=== PATIENT | male | born 1995 | race Caucasian/White ===

== ENCOUNTER 2017-08-25 06:55 | Emergency (ER) | payer MEDICAID, OTHER ==
[2017-08-25] MEDS: DEXAMETHASONE 10 MG/ML 1 ML INJ IM (07:40)
[2017-08-25] MEDS: ALBUTEROL 0.083% (NEB) 2.5 MG/3 ML AMP NEB (07:54)
== END 2017-08-25 09:40 | disposition home or self-care (01) ==
LOC: FTE 06:55
DX: J40 Bronchitis, not specified as acute or chronic (principal)
CPT/HCPCS: 71045; 94664; 96372; 99284-25

== ENCOUNTER 2017-12-11 03:13 | Emergency (ER) | payer OTHER, MEDICAID ==
[2017-12-11] MEDS: IPRATROPIUM (NEB) 0.5 MG/2.5 ML AMP HHN (03:49)
[2017-12-11] MEDS: DEXAMETHASONE 10 MG/ML 1 ML INJ IM (03:49)
[2017-12-11] MEDS: ALBUTEROL 0.083% (NEB) 2.5 MG/3 ML AMP HHN (03:50)
[2017-12-11 03:57] LABS: ADD MAN DIFF? NO
[2017-12-11 04:13] LABS: BASOPHIL # 0.1 10^3/ul (0.0-0.1); BASOPHILS % 0.9 % (0.0-2.0); EOSINOPHILS # 0.5 10^3/ul (0.0-0.5); EOSINOPHILS % 5.3 % (0.0-7.0); HEMATOCRIT 43.5 % (42.0-52.0); HEMOGLOBIN 15.2 g/dl (14.0-18.0); LYMPHOCYTES # 2.8 10^3/ul (0.8-2.9); MEAN CORPUSCULAR HEMOGLOBIN 29.5 pg (29.0-33.0); MEAN CORPUSCULAR HGB CONC 34.9 g/dl (32.0-37.0); MEAN CORPUSCULAR VOLUME 84.5 fl (82.0-101.0); MEAN PLATELET VOLUME 10.1 fl (7.4-10.4); NEUTROPHIL # 4.1 10^3/ul (1.6-7.5); NEUTROPHILS % 48.6 % (39.0-77.0); PLATELET COUNT 278 10^3/UL (140-415); RED BLOOD COUNT 5.15 10^6/ul (4.70-6.10); RED CELL DISTRIBUTION WIDTH 13.3 % (11.5-14.5)
[2017-12-11 04:13] LABS: WHITE BLOOD COUNT 8.5 10^3/ul (4.8-10.8)
[2017-12-11 04:19] LABS: ALANINE AMINOTRANSFERASE 36 IU/L (13-69); ALBUMIN 4.7 g/dl (3.3-4.9); ALBUMIN/GLOBULIN RATIO 1.23; ALKALINE PHOSPHATASE 177 IU/L (42-121); ANION GAP 18 (8-16); ASPARTATE AMINO TRANSFERASE 36 IU/L (15-46); BILIRUBIN,INDIRECT 0.2 mg/dl (0-1.1); BILIRUBIN,TOTAL 0.2 mg/dl (0.2-1.3); BLOOD UREA NITROGEN 17 mg/dl (7-20); CALCIUM 9.6 mg/dl (8.4-10.2); CARBON DIOXIDE 17 mmol/L (21-31); CHLORIDE 111 mmol/L (97-110); CREATININE 0.88 mg/dl (0.61-1.24); GLUCOSE 120 mg/dl (70-220); LIPASE 64 U/L (23-300); POTASSIUM 3.7 mmol/L (3.5-5.1); SODIUM 142 mmol/L (135-144); TOTAL PROTEIN 8.5 g/dl (6.1-8.1)
[2017-12-11] MEDS: LEVALBUTEROL (NEB) 1.25 MG/0.5 ML AMP HHN (04:21)
[2017-12-11 04:30] LABS: TROPONIN-I < 0.012 ng/ml (0.000-0.120)
[2017-12-11 05:13] LABS: ADD UMIC YES; UR AMORPHOUS CRYSTAL FEW /HPF (NONE SEEN); UR ASCORBIC ACID NEGATIVE (NEGATIVE); UR BILIRUBIN (Dip) NEGATIVE (NEGATIVE); UR BLOOD (Dip) NEGATIVE (NEGATIVE); UR CLARITY TURBID (CLEAR); UR COLOR YELLOW (YELLOW); UR GLUCOSE (Dip) NEGATIVE (NEGATIVE); UR KETONES (Dip) 1+ mg/dL (NEGATIVE); UR LEUKOCYTE ESTERASE (Dip) NEGATIVE Leu/ul (NEGATIVE); UR NITRITE (Dip) NEGATIVE (NEGATIVE); UR RBC 1 /HPF (0-5); UR SPECIFIC GRAVITY (Dip) 1.018 (1.003-1.030); UR TOTAL PROTEIN (Dip) NEGATIVE (NEGATIVE); UR UROBILINOGEN (Dip) NEGATIVE (NEGATIVE); UR WBC 0 /HPF (0-5)
== END 2017-12-11 05:05 | disposition home or self-care (01) ==
LOC: FTE 03:13
DX: J45.901 Unspecified asthma with (acute) exacerbation (principal)
CPT/HCPCS: 36415; 71045; 80053; 81001; 83690; 84484; 85025; 93005; 94640; 94664; 96372; 99285-25

== ENCOUNTER 2018-07-24 07:48 | Emergency (ER) | payer OTHER ==
[2018-07-24] MEDS: ONDANSETRON (ODT) 4 MG TAB ODT (08:47)
[2018-07-24] MEDS: ACETAMINOPHEN 500 MG TAB PO (08:47)
[2018-07-24 09:17] LABS: AMPHETAMINE/METHAMPHETAMINE Negative (NEGATIVE); BARBITURATES Negative (NEGATIVE); CANNABINOIDS Positive (NEGATIVE); COCAINE Negative (NEGATIVE); OPIATES Negative (NEGATIVE)
[2018-07-24 09:20] LABS: BENZODIAZEPINES Positive (NEGATIVE)
== END 2018-07-24 09:09 | disposition home or self-care (01) ==
LOC: FTE 07:48
DX: R11.0 Nausea (principal)
CPT/HCPCS: 80307; 99283

== ENCOUNTER 2018-08-29 07:58 | Emergency (ER) | payer SELFPAY, OTHER | END 2018-08-29 08:49 | disposition home or self-care (01) | LOC: FTE 07:58 | DX: R19.7 Diarrhea, unspecified (principal); F17.210 Nicotine dependence, cigarettes, uncomplicated | CPT/HCPCS: 99284 ==